=== PATIENT | male | born 1985 | race African-American/Black ===

== ENCOUNTER 2017-10-19 19:20 | Emergency (ER) | payer OTHER ==
--- NOTE | 2017-10-19 20:07 | ED Physician Documentation ---
PD HPI CHEST PAIN - Stated complaint Stated Complaint: CP/NAUSEA - Chief complaint Chief Complaint: Cardiac - History obtained from History obtained from: Patient - History of Present Illness Timing - onset: Today Timing - onset during: Light activity Timing - duration: Hours Timing - details: Abrupt onset, Intermittant Pain level now: 0 Quality: Dull, Pain Location: Substernal, Left chest Radiation: No: Jaw, Neck, Back, Abdominal, Left upper extremity, Right upper extremity Improved by: Rest Worsened by: Inspiration Associated symptoms: No: Shortness of air, Diaphoresis, Nausea, Vomiting, Palpitations Similar symptoms before: Has not had sx before Recently seen: Not recently seen Review of Systems Constitutional: reports: Reviewed and negative Cardiac: reports: Chest pain / pressure. denies: Palpitations, Pedal edema, Calf pain Respiratory: reports: Reviewed and negative GI: reports: Reviewed and negative Musculoskeletal: denies: Extremity swelling PD PAST MEDICAL HISTORY - Past Medical History Past Medical History: No - Past Surgical History Past Surgical History: No - Allergies Allergies/Adverse Reactions: Allergies Allergy/AdvReac Type Severity Reaction Status Date / Time No Known Drug Allergies Allergy Verified 10/19/17 19:32 - Social History Does the pt smoke?: No Smoking Status: Never smoker Does the pt drink ETOH?: Yes Does the pt have substance abuse?: No - Immunizations Immunizations are current?: Yes PD ED PE NORMAL - Vitals Vital signs reviewed: Yes - General General: Alert and oriented X 3, No acute distress, Well developed/nourished - HEENT HEENT: Moist mucous membranes - Neck Neck: Supple, no meningeal sign - Cardiac Cardiac: RRR, No murmur, No gallop, No rub, Other (occasional extrasystole) - Respiratory Respiratory: No respiratory distress, Clear bilaterally - Abdomen Abdomen: Soft, Non tender - Derm Derm: Normal color, Warm and dry - Extremities Extremities: No edema Results - Vitals Vitals: Oxygen O2 Source Room air - EKG (time done) No standard instances Rate: Rate (enter#) (97) Rhythm: NSR [place]: Normal Intervals: Normal CT QRS: Normal Ischemia: Normal ST segments - Labs Labs: Laboratory Tests 10/19/17 10/19/17 10/19/17 19:35 19:35 19:35 WBC 7.9 RBC 5.72 Hgb 16.4 Hct 50.2 MCV 87.8 MCH 28.7 MCHC 32.7 RDW 13.3 Plt Count 284 MPV 8.7 Neut # 5.9 Lymph # 1.0 L [place] # 1.0 Eos # 0.0 Baso # 0.0 Absolute Nucleated RBC 0.00 Nucleated RBC % 0.0 D-Dimer < 200.0 L Sodium 136 Potassium 3.7 Chloride 104 Carbon Dioxide 23 Anion Gap 9.0 BUN 13 Creatinine 0.7 Estimated GFR (MDRD) 160 Glucose 99 Calcium 8.9 Troponin I 10/19/17 19:35 WBC RBC Hgb Hct MCV MCH MCHC RDW Plt Count MPV Neut # Lymph # [place] # Eos # Baso # Absolute Nucleated RBC Nucleated RBC % D-Dimer Sodium Potassium Chloride Carbon Dioxide Anion Gap BUN Creatinine Estimated GFR (MDRD) Glucose Calcium Troponin I < 0.04 - Rads (name of study) chest xray Radiology: Prelim report reviewed, See rad report PD MEDICAL DECISION MAKING - ED course Complexity details: reviewed results, re-evaluated patient, considered differential, d/w patient Departure - Departure Disposition: 01 Home, Self Care Clinical Impression: Chest pain Condition: Good Instructions: ED Chest Pain Atypical Unkn Cause Follow-Up: JANUSZ Woodward [Provider Group] - Within 1 week Discharge Date/Time: 10/19/17 23:43
[2017-10-19 20:36] LABS: BASOPHILS % (AUTO) 0.2 %; EOSINOPHILS % (AUTO) 0.5 %; HGB - HEMOGLOBIN 16.4 g/dL (14.0-18.0); LYMPHOCYTES % (AUTO) 12.5 %; MEAN CORPUSCULAR HEMOGLOBIN 28.7 pg (27.0-31.0); MEAN CORPUSCULAR HGB CONC 32.7 g/dL (32.0-36.0); MEAN CORPUSCULAR VOLUME 87.8 fL (80.0-94.0); MEAN PLATELET VOLUME 8.7 fL (7.4-11.4); MONOCYTES % (AUTO) 12.7 %; NEUTROPHILS # (AUTO) 5.9 10^3/uL (1.5-6.6); NEUTROPHILS % (AUTO) 74.1 %; PLT - PLATELET COUNT 284 10^3/uL (130-450); RED BLOOD COUNT 5.72 10^6/uL (4.70-6.10); RED CELL DISTRIBUTION WIDTH 13.3 % (12.0-15.0); WHITE BLOOD COUNT 7.9 x10^3/uL (4.8-10.8)
[2017-10-19 20:43] LABS: CALCIUM 8.9 mg/dL (8.5-10.3); CREATININE 0.7 mg/dL (0.6-1.2)
--- NOTE | 2017-10-19 20:57 | XRAY Report ---
EXAM: CHEST RADIOGRAPHY EXAM DATE: 10/19/2017 08:47 PM. CLINICAL HISTORY: Chest pain. Pain on inspiration. Nausea. COMPARISON: None. TECHNIQUE: 2 views. FINDINGS: Lungs/Pleura: No focal opacities evident. No pleural effusion. No pneumothorax. Normal volumes. Mediastinum: Heart and mediastinal contours are unremarkable. Other: No acute osseous abnormalities. IMPRESSION: 1. No acute disease in the chest. [facility] Referring Provider Line: [phone] SITE ID: [id number]
[2017-10-19 23:37] VITALS: BP 116/81
== END 2017-10-19 23:43 | disposition home or self-care (01) ==
LOC: ED 19:20
DX: R07.9 Chest pain, unspecified (principal)
CPT/HCPCS: 36415; 71046; 80048; 84484; 85025; 85379; 93005; 99283; 99284

== ENCOUNTER 2019-02-28 16:01 | Inpatient (IN) | payer OTHER ==
[2019-02-28 16:26] LABS: BASOPHILS % (AUTO) 0.3 %; EOSINOPHILS % (AUTO) 0.4 %; HGB - HEMOGLOBIN 15.5 g/dL (14.0-18.0); RED CELL DISTRIBUTION WIDTH 13.2 % (12.0-15.0)
[2019-02-28 16:30] LABS: LYMPHOCYTES % (AUTO) 17.2 %; MEAN CORPUSCULAR HEMOGLOBIN 30.1 pg (27.0-31.0); MEAN CORPUSCULAR HGB CONC 34.1 g/dL (32.0-36.0); MEAN CORPUSCULAR VOLUME 88.2 fL (80.0-94.0); MONOCYTES % (AUTO) 14.3 %; NEUTROPHILS % (AUTO) 67.3 %; PLT - PLATELET COUNT 257 10^3/uL (130-450); RED BLOOD COUNT 5.15 10^6/uL (4.70-6.10); WHITE BLOOD COUNT 11.2 x10^3/uL (4.8-10.8)
[2019-02-28 16:39] LABS: ALBUMIN 4.2 g/dL (3.2-5.5); ALBUMIN/GLOBULIN RATIO 1.2 (1.0-2.2); BILIRUBIN,TOTAL 0.9 mg/dL (0.2-1.0); CALCIUM 9.3 mg/dL (8.5-10.3); CREATININE 0.8 mg/dL (0.6-1.2); TOTAL PROTEIN 7.7 g/dL (6.7-8.2)
[2019-02-28 16:46] LABS: ABNORMAL LYMPHS % (MANUAL) 0 %
[2019-02-28 17:18] LABS: BAND NEUTROPHILS % (MANUAL) 1 %; LYMPHOCYTES # (MANUAL) 2.7 10^3/uL (1.5-3.5); LYMPHOCYTES % (MANUAL) 23 %; MONOCYTES # (MANUAL) 0.9 10^3/uL (0.0-1.0)
[2019-02-28 17:19] LABS: DIFFERENTIAL COMMENT MANUAL DIFFERENTIAL; PLATELET ESTIMATE, MANUAL NORMAL (130-450,000) (NORMAL); PLATELET MORPHOLOGY NORMAL APPEARANCE (NORMAL); RBC MORPHOLOGY (MULTIPLE) NORMAL APPEARANCE (NORMAL)
[2019-02-28 18:00] LABS: BILIRUBIN,URINE NEGATIVE (NEGATIVE); GLUCOSE, URINE (UA) NEGATIVE (NEGATIVE); KETONES,URINE (UA) NEGATIVE (NEGATIVE); LEUKOCYTE ESTERASE, URINE NEGATIVE (NEGATIVE); NITRITE,URINE NEGATIVE (NEGATIVE); OCCULT BLOOD,URINE SMALL (NEGATIVE); PROTEIN,URINE NEGATIVE (NEGATIVE); UROBILINOGEN,URINE 1 (NORMAL) E.U./dL (NORMAL)
[2019-02-28 18:05] LABS: CLARITY,URINE CLEAR (CLEAR)
[2019-02-28 18:09] LABS: BACTERIA,URINE None Seen /HPF (None Seen); MUCUS,URINE Few Strands; SQUAMOUS EPITHELIAL CELL,UR NONE SEEN (<= Few)
[2019-02-28] MEDS ORDERED: IOVERSOL 320 100 ML VIAL IVP ONE ×2 (18:30→18:46)
[2019-02-28] MEDS ORDERED: PIPERACILLIN/TAZOBACTAM 3.375 GM in SODIUM CHLORIDE 0.9% MINIBAG 100 ML IV STA (18:45)
[2019-02-28] MEDS ORDERED: SODIUM CHLORIDE 0.9% 1,000 ML IV ONE (18:50)
[2019-02-28] MEDS ORDERED: MORPHINE 2 MG/ML CARPUJECT IVP STA (18:50)
--- NOTE | 2019-02-28 18:50 | ED Physician Documentation ---
PD HPI ABD PAIN - Stated complaint Stated Complaint: L LOWER ABDOMINAL PX - Chief complaint Chief Complaint: Abd Pain - History obtained from History obtained from: Patient - History of Present Illness Timing - onset: Yesterday Timing - duration: Days (2) Timing - details: Gradual onset Pain level max: 7 Pain level now: 5 Quality: Aching, Pain Location: LLQ Radiation: No: Chest, , Lower back, Left flank, Left shoulder, Right flank, Right shoulder, Upper back Improved by: Laying still Worsened by: Moving, Palpation Associated symptoms: No: Fever, Nausea, Vomiting, Hematemesis, Diarrhea, Constipation, Melena, Hematochezia, Dysuria, Hematuria, Chest pain Similar symptoms before: Has not had sx before Recently seen: Not recently seen Review of Systems Ten Systems: 10 systems reviewed and negative Constitutional: denies: Fever, Chills Cardiac: denies: Chest pain / pressure Respiratory: denies: Cough Skin: denies: Rash Musculoskeletal: denies: Neck pain, Back pain Neurologic: denies: Headache PD PAST MEDICAL HISTORY - Past Medical History Past Medical History: Yes - Past Surgical History Past Surgical History: No - Allergies Allergies/Adverse Reactions: Allergies Allergy/AdvReac Type Severity Reaction Status Date / Time No Known Drug Allergies Allergy Verified 02/28/19 16:05 - Social History Does the pt smoke?: No Smoking Status: Never smoker Does the pt drink ETOH?: Yes Does the pt have substance abuse?: No - Immunizations Immunizations are current?: Yes - POLST Patient has POLST: No PD ED PE NORMAL - Vitals Vital signs reviewed: Yes - General General: Alert and oriented X 3, No acute distress, Well developed/nourished - HEENT HEENT: PERRL, Moist mucous membranes - Neck Neck: Supple, no meningeal sign - Cardiac Cardiac: RRR - Respiratory Respiratory: No respiratory distress, Clear bilaterally - Abdomen Abdomen: Soft, Non distended, Other (TTP LLQ, + guarding and rebound. ) - Back Back: No CVA TTP - Derm Derm: Warm and dry - Extremities Extremities: No edema - Neuro Neuro: Alert and oriented X 3 - Psych Psych: Normal mood, Normal affect Results - Vitals Vitals: Vital Signs - 24 hr 02/28/19 02/28/19 16:05 18:45 Temperature 36.8 C Heart Rate 89 90 Respiratory 15 12 Rate Blood Pressure 164/77 H 121/72 O2 Saturation 97 97 Oxygen O2 Source Room air - Labs Labs: Laboratory Tests 02/28/19 02/28/19 02/28/19 16:20 16:20 17:55 WBC 11.2 H RBC 5.15 Hgb 15.5 Hct 45.4 MCV 88.2 MCH 30.1 MCHC 34.1 RDW 13.2 Plt Count 257 MPV 10.0 Neut # (Auto) Not Reportable Lymph # (Auto) Not Reportable [place] # (Auto) Not Reportable Eos # (Auto) Not Reportable Baso # (Auto) Not Reportable Absolute Nucleated RBC Not Reportable Total Counted 100 Band Neuts % (Manual) 1 Reactive Lymphs % (Man) 1 Abnorm Lymph % (Manual) 0 Nucleated RBC % Not Reportable Neutrophils # (Manual) 7.6 H Lymphocytes # (Manual) 2.7 Monocytes # (Manual) 0.9 Eosinophils # (Manual) 0.0 Basophils # (Manual) 0.0 Differential Comment MANUAL DIFFERENTIAL Manual Slide Review Indicated Platelet Estimate NORMAL (130-450,000) Platelet Morphology NORMAL APPEARANCE RBC Morph Micro Appear NORMAL APPEARANCE Sodium 140 Potassium 4.0 Chloride 105 Carbon Dioxide 25 Anion Gap 10.0 BUN 9 Creatinine 0.8 Estimated GFR (MDRD) 136 Glucose 101 H Calcium 9.3 Total Bilirubin 0.9 AST 34 ALT 45 Alkaline Phosphatase 57 Total Protein 7.7 Albumin 4.2 Globulin 3.5 Albumin/Globulin Ratio 1.2 Lipase 35 Urine Color DARK YELLOW Urine Clarity CLEAR Urine pH 6.0 Ur Specific [place] 1.020 Urine Protein NEGATIVE Urine Glucose (UA) NEGATIVE Urine Ketones NEGATIVE Urine Occult Blood SMALL H Urine Nitrite NEGATIVE Urine Bilirubin NEGATIVE Urine Urobilinogen 1 (NORMAL) Ur Leukocyte Esterase NEGATIVE Urine RBC 11-25 H Urine WBC 0-3 Ur Squamous Epith Cells NONE SEEN Urine Bacteria None Seen Urine Mucus Few Strands Ur Microscopic Review INDICATED Urine Culture Comments NOT INDICATED - Rads (name of study) CT abd/pelvis Radiology: Prelim report reviewed, EMP read contemporaneously, See rad report (Contained microperforation of the proximal sigmoid colon likely secondary to acute diverticulitis. No evidence of ascites or abscess. Small hiatal hernia. Nonobstructive bowel gas pattern. Normal appendix. Small fat-containing periumbilical hernia and bilateral fat-containing inguinal hernias. 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 Given Zosyn. Not septic. No abscess. Discussed the case with Dr. Napier, general surgery on-call who recommends admission to the hospitalist team. Discussed the case with Dr. Palma, hospitalist who accepts. This document was made in part using voice recognition software. While efforts are made to proofread this document, sound alike and grammatical errors may occur. Departure - Departure Disposition: 68 [facility] DC/Xfer Clinical Impression: Perforated diverticulum, Diverticulitis Condition: Stable Discharge Date/Time: 02/28/19 20:04
--- NOTE | 2019-02-28 19:06 | CT Report ---
Reason: LLQ abd pain Procedure Date: 02/28/2019 Accession Number: [id number] / [id number] Procedure: CT - Abdomen/Pelvis W CPT Code: FULL RESULT: EXAM: CT ABDOMEN AND PELVIS EXAM DATE: 02/28/2019 06:46 PM. CLINICAL HISTORY: Left lower quadrant abdominal pain. COMPARISONS: None available. TECHNIQUE: Routine helical CT imaging was performed through the abdomen and pelvis. IV contrast: OPTI 320 90 mL. Enteric contrast: No. Reconstructions: Coronal and sagittal. In accordance with CT protocol optimization, one or more of the following dose reduction techniques were utilized for this exam: automated exposure control, adjustment of mA and/or KV based on patient size, or use of iterative reconstructive technique. FINDINGS: Lung Bases: Minimal dependent atelectasis bilaterally. Liver: Normal. No masses. Gallbladder/Bile Ducts: Unremarkable. Spleen: Small splenule at the inferior margin of the spleen. Otherwise unremarkable. Pancreas: Normal. Adrenal Glands: Normal. Kidneys: Symmetric renal perfusion. No hydronephrosis or nephrolithiasis. Peritoneal Cavity/Bowel: Small hiatal hernia. Nonobstructive bowel gas pattern. Small fat-containing periumbilical hernia with the hernia neck measuring 18 mm in transverse diameter. There is very minimal diverticulosis of the sigmoid colon. However, there is focal wall thickening and pericolonic inflammatory change involving the proximal sigmoid colon. There is a small pocket of extraluminal gas anteriorly at this location (image 63 of series 3). Elsewhere, no free intraperitoneal air. No ascites or abscess. The appendix is normal. Pelvic Organs: Small fat-containing inguinal hernias bilaterally, left larger than right. Vasculature: No aneurysms or acute abnormality. Bones: No acute abnormality. Other: None. IMPRESSION: Contained microperforation of the proximal sigmoid colon likely secondary to acute diverticulitis. No evidence of ascites or abscess. Small hiatal hernia. Nonobstructive bowel gas pattern. Normal appendix. Small fat-containing periumbilical hernia and bilateral fat-containing inguinal hernias. [facility] The call report notification system was initiated by Dr. Taj Chow at 07:00 PM on 02/28/2019. The above call report findings were discussed with Kendall Torres by Dr. Taj Chow at 07:04 PM on 02/28/2019.
[2019-02-28] MEDS ORDERED: SODIUM CHLORIDE FLUSH 0.9% 10 ML SYRINGE IVP PRN (19:36)
[2019-02-28] MEDS ORDERED: MORPHINE 2 MG/ML CARPUJECT IVP PRN (19:36)
[2019-02-28] MEDS ORDERED: LACTATED RINGERS 1,000 ML IV SCH (20:00)
[2019-02-28] MEDS: SODIUM CHLORIDE 0.9% 1,000 ML IV SCH (20:44)
--- NOTE | 2019-02-28 20:50 | HISTORY & PHYSICAL EXAMINATION ---
Chief Complaint - Chief Complaint Chief Complaint: Lower abdominal pain History of Present Illness - Admitted From Admitted From:: Home - History Obtained From Records Reviewed: Yes History obtained from: Patient - History of Present Illness HPI Comment/Other: This is a 34 year old male with a past medical history significant for diverticulitis who presents from home complaining of lower abdominal pain for past two days. He first noted the pain yesterday and he thought it was something he ate that upset his stomach. The pain became more severe today (03/06) and he has not had an appetite and so he seeked medical attention. He reports no fevers or chills. Denies nausea, vomiting, diarrhea, or rectal bleeding. He currently reports his pain is well controlled after receiving Morphine. He has not had abdominal issues in the past. His mother has had diverticulitis before. In the ER, he underwent a CT of the abdomen/pelvis which showed diverticulitis with contained microperforation. He will be admitted for further management. 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 Reports no family history of colon cancer. His father had prostate cancer. There is history of ovarian cancer on his mother's side. There is also a history of diabetes on his father's side. Living arrangement: At home Living Situation: Alone Social History Notes: He now lives on [address] [facility] after moving from [place] 1.5 years ago. 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 Does not smoke or use illicit drugs. Drinks alcohol socially. - Substance History Use: Uses substance without health or social issues: Alcohol - POLST Patient has POLST: No Meds/Allgy - Allergies Allergies/Adverse Reactions: Allergies Allergy/AdvReac Type Severity Reaction Status Date / Time No Known Drug Allergies Allergy Verified 02/28/19 16:05 Review of Systems - Constitutional Constitutional: reports: Poor appetite. denies: Fatigue, Fever, Chills, Weakness - Cardiovascular Cariovascular: denies: Chest pain, Lightheadedness - Respiratory Respiratory: denies: SOB at rest, SOB with exertion - Gastrointestinal Gastrointestinal: reports: Abdominal pain. denies: Constipation, Diarrhea, Change in bowel habits, Rectal bleeding, Bloody stools, Nausea, Vomiting - Genitourinary Genitourinary: denies: Dysuria, Frequency, Urgency, Hematuria - Neurological Neurological: denies: General weakness, Dizziness - All Other Systems All Other Systems: reports: Reviewed and negative Prior Level of Functionality: Independent with ADL's. Exam - Vital Signs Vital Signs: Vital Signs x48h Temp Pulse Pulse Resp BP BP Pulse Ox 02/28/19 20:24 37.7 C H 100 18 136/86 H 99 02/28/19 18:45 90 12 121/72 97 02/28/19 16:05 36.8 C 89 15 164/77 H 97 - Physical Exam General Appearance: positive: No acute distress, Alert Eyes Bilateral: positive: Normal inspection ENT: positive: ENT inspection nml Respiratory: positive: No respiratory distress, Breath sounds nml. negative: Wheezes, Rales, Rhonchi Cardiovascular: positive: Regular rate & rhythm, No murmur. negative: Ir regularly irregular, Tachycardia, Bradycardia Abdomen: positive: Nml bowel sounds, Tenderness (Tender to palpation in left lower qudrant.). negative: No organomegaly, No distention, Guarding, Rebound Skin: positive: Color nml, No rash, Warm, Dry Extremities: positive: Non-tender, Full ROM, No pedal edema. negative: Pedal edema Neurologic/Psychiatric: positive: Oriented x3, Motor nml. negative: Disoriented to person, Disoriented to place, Disoriented to time Conclusion/Plan - Problem List (1) Diverticulitis Conclusion/Plan: He has diverticulitis with contained microperforation. Evident on CT abdomen/pelvis. Does not meet sepsis criteria. - Zosyn IV q6h - Zofran PRN - Morphine PRN - NPO, advance diet as tolerated - Colonoscopy in 6-8 weeks on outpatient basis - General Surgery consult (2) HIV (human immunodeficiency virus infection) Conclusion/Plan: Stable. He is on Biktarvy. Denies having low CD4 count. - Resume Biktarvy once the patient brings home medication - Lab Results Lab results reviewed: Yes Fish Bones: 02/28/19 16:20 02/28/19 16:20 - Diagnostic Imaging Results Diagnostic Imaging Results: positive: Final report reviewed Core Measures - Anticipated LOS I expect patient to be DC'd or transferred within 96 hours.: Yes - Issues Hospital Issues and Management Plan: Diverticulitis requiring IV antibiotics - DVT/VTE - Prophylaxis VTE/DVT Device ordered at admit?: Yes VTE/DVT Prophylaxis med ordered at admit?: Yes
[2019-02-28] MEDS ORDERED: ONDANSETRON 4 MG/2 ML VIAL IVP PRN (21:08)
[2019-03-01] MEDS: PIPERACILLIN/TAZOBACTAM 3.375 GM in SODIUM CHLORIDE 0.9% MINIBAG 100 ML IV SCH ×5 (00:42→23:52)
[2019-03-01] MEDS: ACETAMINOPHEN 325 MG TABLET PO PRN ×2 (00:42→11:40)
[2019-03-01] MEDS: SODIUM CHLORIDE FLUSH 0.9% 10 ML SYRINGE IVP SCH ×4 (00:43→23:54)
[2019-03-01] MEDS: SODIUM CHLORIDE 0.9% 1,000 ML IV SCH ×3 (03:26→21:59)
[2019-03-01 06:21] LABS: BASOPHILS % (AUTO) 0.3 %; EOSINOPHILS # (AUTO) 0.1 10^3/uL (0.0-0.7); EOSINOPHILS % (AUTO) 0.5 %; HGB - HEMOGLOBIN 14.2 g/dL (14.0-18.0); LYMPHOCYTES # (AUTO) 2.2 10^3/uL (1.5-3.5); LYMPHOCYTES % (AUTO) 19.9 %; MEAN CORPUSCULAR HEMOGLOBIN 29.3 pg (27.0-31.0); MEAN CORPUSCULAR VOLUME 88.8 fL (80.0-94.0); MEAN PLATELET VOLUME 10.1 fL (7.4-11.4); MONOCYTES # (AUTO) 1.5 10^3/uL (0.0-1.0); MONOCYTES % (AUTO) 13.2 %; NEUTROPHILS # (AUTO) 7.3 10^3/uL (1.5-6.6); NEUTROPHILS % (AUTO) 65.9 %; PLT - PLATELET COUNT 249 10^3/uL (130-450); RED BLOOD COUNT 4.84 10^6/uL (4.70-6.10); RED CELL DISTRIBUTION WIDTH 13.4 % (12.0-15.0); WHITE BLOOD COUNT 11.1 x10^3/uL (4.8-10.8)
[2019-03-01 06:34] LABS: CALCIUM 8.8 mg/dL (8.5-10.3); MAGNESIUM 2.1 mg/dL (1.7-2.8); PHOSPHORUS 3.7 mg/dL (2.5-4.6)
[2019-03-01] MEDS: BICTEGRAVIR PO SCH (08:28)
[2019-03-01] MEDS: [UNRECOGNIZED DRUG - OTHER] PO SCH (08:28)
[2019-03-01] MEDS: EMTRICITABINE PO SCH (08:28)
[2019-03-01] MEDS: TENOFOVIR ALAFENAMIDE 25 MG PO SCH (08:28)
[2019-03-01] MEDS: ENOXAPARIN 40 MG/0.4 ML SYRINGE SUBQ SCH (08:28)
--- NOTE | 2019-03-01 16:58 | PROVIDER PROGRESS NOTE ---
Subjective - Prog Note Date Prog Note Date: 03/01/19 Prog Note Time: 16:54 - Subjective Pt reports feeling: Improved Subjective: Angelo admits to an improvement in his abdominal pain and is tolerating a clear liquid diet this evening. He denies chest pain, nausea, vomiting, a new rash, dizziness, or shortness of breath. He denies blood stools or vomiting today. Current Medications - Current Medications Current Medications: Active Medications: Acetaminophen (Tylenol) 650 mg PO Q6HR PRN Enoxaparin Sodium (Lovenox) 40 mg SUBQ DAILY BURKE Piperacillin Sod/Tazobactam (Sod 3.375 gm/ Sodium Chloride) 100 mls @ 200 mls/hr IV Q6H BURKE Sodium Chloride (Normal Saline 0.9%) 1,000 mls @ 125 mls/hr IV .Q8H BURKE Morphine Sulfate (Morphine (Carpuject)) 2 mg IVP Q2HR PRN Ondansetron HCl (Zofran Inj) 4 mg IVP Q6HR PRN Biktarvy - Bictegravir 50mg/Emtricitabine 200mg/Tenofovir Alafenamide 25mg 1 each PO DAILY BURKE Objective - Vital Signs/Intake & Output Reviewed Vital Signs: Yes Vital Signs: Vital Signs x48h Temp Pulse Resp BP Pulse Ox 03/01/19 16:00 36.6 C 83 16 129/76 97 Intake & Output: Intake & Output 02/26/19 02/27/19 02/28/19 03/01/19 23:59 23:59 23:59 23:59 Intake Total 357.5 2211.667 Balance 357.5 2211.667 - Objective General Appearance: positive: No acute distress, Alert Eyes Bilateral: positive: PERRL ENT: positive: Pharynx nml, No signs of dehydration Neck: positive: Thyroid nml, No JVD, Trachea midline Respiratory: positive: Chest non-tender, No respiratory distress, Breath sounds nml Cardiovascular: positive: Regular rate & rhythm, No gallop Peripheral Pulses: 1+ Radial (R), 1+ Radial (L) Abdomen: positive: Non-tender, Nml bowel sounds Back: positive: Nml inspection Skin: positive: Color nml, No rash, Warm, Dry Extremities: positive: Non-tender, Full ROM, Nml appearance, No pedal edema Neurologic/Psychiatric: positive: Oriented x3, CN's nml (2-12), Motor nml, Sens ation nml, Mood/affect nml Reflexes: Bicep (R): 3+, Bicep (L): 3+ - Lab Results Fish Bones: 03/02/19 05:29 03/02/19 05:39 Other Labs: Lab Results x24hrs 03/01/19 03/01/19 02/28/19 Range/Units 05:45 05:45 17:55 WBC 11.1 H (4.8-10.8) x10^3/uL RBC 4.84 (4.70-6.10) 10^6/uL Hgb 14.2 (14.0-18.0) g/dL Hct 43.0 (42.0-52.0) % MCV 88.8 (80.0-94.0) fL MCH 29.3 (27.0-31.0) pg MCHC 33.0 (32.0-36.0) g/dL RDW 13.4 (12.0-15.0) % Plt Count 249 (130-450) 10^3/uL MPV 10.1 (7.4-11.4) fL Neut # (Auto) 7.3 H Lymph # (Auto) 2.2 [place] # (Auto) 1.5 H Eos # (Auto) 0.1 Baso # (Auto) 0.0 Absolute Nucleated RBC 0.00 Total Counted Band Neuts % (Manual) (0 - 10) % Reactive Lymphs % (Man) % Abnorm Lymph % (Manual) % Nucleated RBC % 0.0 Neutrophils # (Manual) (1.5-6.6) 10^3/uL Lymphocytes # (Manual) (1.5-3.5) 10^3/uL Monocytes # (Manual) (0.0-1.0) 10^3/uL Eosinophils # (Manual) (0-0.7) 10^3/uL Basophils # (Manual) (0-0.1) 10^3/uL Differential Comment Platelet Estimate (NORMAL) Platelet Morphology (NORMAL) RBC Morph Micro Appear (NORMAL) Sodium 141 (135-145) mmol/L Potassium 4.0 (3.5-5.0) mmol/L Chloride 105 (101-111) mmol/L Carbon Dioxide 26 (21-32) mmol/L Anion Gap 10.0 (6-13) BUN 8 (6-20) mg/dL Creatinine 1.0 (0.6-1.2) mg/dL Estimated GFR (MDRD) 105 (>89) Glucose 93 (70-100) mg/dL Calcium 8.8 (8.5-10.3) mg/dL Phosphorus 3.7 (2.5-4.6) mg/dL Magnesium 2.1 (1.7-2.8) mg/dL Urine Color DARK YELLOW Urine Clarity CLEAR (CLEAR) Urine pH 6.0 (5.0-7.5) PH Ur Specific [place] 1.020 (1.002-1.030) Urine Protein NEGATIVE (NEGATIVE) mg/dL Urine Glucose (UA) NEGATIVE (NEGATIVE) mg/dL Urine Ketones NEGATIVE (NEGATIVE) mg/dL Urine Occult Blood SMALL H (NEGATIVE) Urine Nitrite NEGATIVE (NEGATIVE) Urine Bilirubin NEGATIVE (NEGATIVE) Urine Urobilinogen 1 (NORMAL) (NORMAL) E.U./dL Ur Leukocyte Esterase NEGATIVE (NEGATIVE) Urine RBC 11-25 H (0-5) /HPF Urine WBC 0-3 (0-3) /HPF Ur Squamous Epith Cells NONE SEEN (<= Few) Urine Bacteria None Seen (None Seen) /HPF Urine Mucus Few Strands Ur Microscopic Review INDICATED Urine Culture Comments NOT INDICATED 02/28/19 Range/Units 16:20 WBC (4.8-10.8) x10^3/uL RBC (4.70-6.10) 10^6/uL Hgb (14.0-18.0) g/dL Hct (42.0-52.0) % MCV (80.0-94.0) fL MCH (27.0-31.0) pg MCHC (32.0-36.0) g/dL RDW (12.0-15.0) % Plt Count (130-450) 10^3/uL MPV (7.4-11.4) fL Neut # (Auto) Not Reportable Lymph # (Auto) Not Reportable [place] # (Auto) Not Reportable Eos # (Auto) Not Reportable Baso # (Auto) Not Reportable Absolute Nucleated RBC Not Reportable Total Counted 100 Band Neuts % (Manual) 1 (0 - 10) % Reactive Lymphs % (Man) 1 % Abnorm Lymph % (Manual) 0 % Nucleated RBC % Not Reportable Neutrophils # (Manual) 7.6 H (1.5-6.6) 10^3/uL Lymphocytes # (Manual) 2.7 (1.5-3.5) 10^3/uL Monocytes # (Manual) 0.9 (0.0-1.0) 10^3/uL Eosinophils # (Manual) 0.0 (0-0.7) 10^3/uL Basophils # (Manual) 0.0 (0-0.1) 10^3/uL Differential Comment MANUAL DIFFERENTIAL Platelet Estimate NORMAL (130-450,000) (NORMAL) Platelet Morphology NORMAL APPEARANCE (NORMAL) RBC Morph Micro Appear NORMAL APPEARANCE (NORMAL) Sodium (135-145) mmol/L Potassium (3.5-5.0) mmol/L Chloride (101-111) mmol/L Carbon Dioxide (21-32) mmol/L Anion Gap (6-13) BUN (6-20) mg/dL Creatinine (0.6-1.2) mg/dL Estimated GFR (MDRD) (>89) Glucose (70-100) mg/dL Calcium (8.5-10.3) mg/dL Phosphorus (2.5-4.6) mg/dL Magnesium (1.7-2.8) mg/dL Urine Color Urine Clarity (CLEAR) Urine pH (5.0-7.5) PH Ur Specific [place] (1.002-1.030) Urine Protein (NEGATIVE) mg/dL Urine Glucose (UA) (NEGATIVE) mg/dL Urine Ketones (NEGATIVE) mg/dL Urine Occult Blood (NEGATIVE) Urine Nitrite (NEGATIVE) Urine Bilirubin (NEGATIVE) Urine Urobilinogen (NORMAL) E.U./dL Ur Leukocyte Esterase (NEGATIVE) Urine RBC (0-5) /HPF Urine WBC (0-3) /HPF Ur Squamous Epith Cells (<= Few) Urine Bacteria (None Seen) /HPF Urine Mucus Ur Microscopic Review Urine Culture Comments ABX Reporting Has patient been on IV antibiotics over the past 48 hours?: Yes Assessment/Plan - Problem List (1) Diverticulitis Impression: -Imaging showed diverticulitis with contained microperforation, via CT abdomen /pelvis - Zosyn IV q6h - Zofran PRN - Morphine PRN - Clear liquid, advance diet as tolerated - Colonoscopy in 6-8 weeks on outpatient basis - General Surgery consulted, see chart for note (2) HIV (human immunodeficiency virus infection) Impression: - This condition is thought to be stable - Home meds include; Biktarvy - Unknown CD4 count, but patient states his last one was not low Plan: Continue Biktarvy (patient own medication) (3) Perforated diverticulum Impression: - Imaging showed micro-perforations in the sigmoid colon (4) Abdominal pain Impression: - Now resolved - On admission, he noted LLQ pain, which goes with his condition Plan: Continue to monitor for improvement Qualifiers: Abdominal location: left lower quadrant Qualified Code(s): R10.32 - Left lower quadrant pain
--- NOTE | 2019-03-01 23:55 | CONSULTATION NOTE ---
Referring Provider Name of Referring Provider:: Dr. Seamus Torres Consult Date: 02/28/19 Chief Complaint - Chief Complaint Chief Complaint: LLQ abdominal pain History of Present Illness - Admitted From Admitted From:: [facility] ED Room 6 - History Obtained From Records Reviewed: Yes. History obtained from: Patient and Dr. Torres. Exam Limitations: None. - History of Present Illness HPI Comment/Other: Dr. Seamus Gilbert asked that I see this very pleasant 34-year-old male for perforated diverticulitis. The patient did not appear septic on presentation but did have a couple day up this history of worsening left lower quadrant pain. There was no antecedent trauma. The patient has not had this pain previously. The patient denied melena, hematochezia, or hematemesis. History - Past Medical History Cardiovascular: reports: None Respiratory: reports: None Neuro: reports: None Endocrine/Autoimmune: reports: None GI: reports: None [employer]: reports: None : reports: None HEENT: reports: None Psych: reports: None Musculoskeletal: reports: None Derm: reports: None MRSA Hx?: No Other Past Medical History: HIV - Family & Social History Family History Comment/Other: His mother had diverticulitis in the past. Reports no family history of colon cancer. His father had prostate cancer. There is history of ovarian cancer on his mother's side. There is also a history of diabetes on his father's side. Living arrangement: At home Living Situation: Alone Social History Notes: He now lives on [address] [facility] after moving from [place] 1.5 years ago. 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 Does not smoke or use illicit drugs. Drinks alcohol socially. - Substance History Use: Uses substance without health or social issues: Alcohol - POLST Patient has POLST: No Meds/Allgy - Allergies Allergies/Adverse Reactions: Allergies Allergy/AdvReac Type Severity Reaction Status Date / Time No Known Drug Allergies Allergy Verified 02/28/19 16:05 Review of Systems - Gastrointestinal Gastrointestinal: reports: Abdominal pain, Diarrhea (Some.) Exam - Vital Signs Reviewed Vital Signs: Yes Vital Signs: Vital Signs x48h Temp Pulse Resp BP Pulse Ox 03/01/19 23:50 36.8 C 85 17 137/72 H 98 03/01/19 16:00 36.6 C 83 16 129/76 97 - Physical Exam General Appearance: positive: No acute distress Eyes Bilateral: positive: No lid inflammation, Conjunctivae nml, No scleral icterus ENT: positive: Dry mucous membranes Neck: positive: Trachea midline Respiratory: positive: Chest non-tender, No respiratory distress, Breath sounds nml Cardiovascular: positive: Regular rate & rhythm Abdomen: positive: Nml bowel sounds, Tenderness (Sharp in the left lower quadrant and referred pain from palpation in the right lower quadrant.) Skin: positive: Color nml Extremities: positive: Non-tender, Full ROM, Nml appearance Neurologic/Psychiatric: positive: Oriented x3, Motor nml, Sensation nml, Mood/affect nml Conclusion/Plan - Diagnosis Diagnosis: Small perforated diverticulitis (contained) - Plan Plan: As I explained to the patient both in the emergency room and on the floor when I saw him I am "plan B." Basically, I am here to ensure that if he does have a f ree perforation or appears septic then I would perform surgery to resect the perforated colon and give him an end colostomy. This is obviously not with the patient wants, nor is it what I wish to perform. Instead, assuming the patient improves, the patient would be discharged home and he will follow-up with me in 6 weeks time for a colonoscopy. 45 minutes of [id number] time spent with the patient, the majority of which was spent in discussion, coordination of care, and completion of the requisite paperwork Dragon disclaimer: This document was created in part using voice recognition technology. Because of the inherent limitations of the system ([employer]'s Dragon Dictate user manual states that the licensee understands that speech recognition is a statistical process and that recognition errors are inherent in the process), occasional same sounding word substitutions and grammatical errors do occur and persist despite proofreading. Please read this document for context. - Lab Results Lab results reviewed: Yes Fish Bones: 03/01/19 05:45 03/01/19 05:45 - Diagnostic Imaging Results Diagnostic Imaging Results: positive: Final report reviewed, Read independently
[2019-03-02] MEDS: PIPERACILLIN/TAZOBACTAM 3.375 GM in SODIUM CHLORIDE 0.9% MINIBAG 100 ML IV SCH ×2 (05:21→12:10)
[2019-03-02 06:02] LABS: BASOPHILS % (AUTO) 0.3 %; EOSINOPHILS # (AUTO) 0.1 10^3/uL (0.0-0.7); EOSINOPHILS % (AUTO) 1.3 %; HGB - HEMOGLOBIN 14.4 g/dL (14.0-18.0); LYMPHOCYTES # (AUTO) 1.8 10^3/uL (1.5-3.5); MEAN CORPUSCULAR HEMOGLOBIN 29.4 pg (27.0-31.0); MEAN CORPUSCULAR HGB CONC 33.3 g/dL (32.0-36.0); MEAN CORPUSCULAR VOLUME 88.3 fL (80.0-94.0); MEAN PLATELET VOLUME 10.2 fL (7.4-11.4); MONOCYTES # (AUTO) 0.8 10^3/uL (0.0-1.0); MONOCYTES % (AUTO) 11.1 %; NEUTROPHILS # (AUTO) 4.4 10^3/uL (1.5-6.6); NEUTROPHILS % (AUTO) 62.2 %; PLT - PLATELET COUNT 254 10^3/uL (130-450); RED BLOOD COUNT 4.89 10^6/uL (4.70-6.10); RED CELL DISTRIBUTION WIDTH 13.2 % (12.0-15.0); WHITE BLOOD COUNT 7.1 x10^3/uL (4.8-10.8)
[2019-03-02 06:17] LABS: CALCIUM 8.7 mg/dL (8.5-10.3); MAGNESIUM 2.2 mg/dL (1.7-2.8); PHOSPHORUS 3.4 mg/dL (2.5-4.6)
[2019-03-02] MEDS ORDERED: POTASSIUM CHLORIDE 20 MEQ TABLET PO ONE (06:41)
[2019-03-02] MEDS: SODIUM CHLORIDE FLUSH 0.9% 10 ML SYRINGE IVP SCH (08:17)
[2019-03-02 08:20] VITALS: BP 128/70
[2019-03-02] MEDS: SODIUM CHLORIDE 0.9% 1,000 ML IV SCH (09:01)
[2019-03-02] MEDS: BICTEGRAVIR PO SCH (09:01)
[2019-03-02] MEDS: [UNRECOGNIZED DRUG - OTHER] PO SCH (09:01)
[2019-03-02] MEDS: EMTRICITABINE PO SCH (09:01)
[2019-03-02] MEDS: TENOFOVIR ALAFENAMIDE 25 MG PO SCH (09:01)
[2019-03-02] MEDS: ENOXAPARIN 40 MG/0.4 ML SYRINGE SUBQ SCH (09:01)
--- NOTE | 2019-03-02 13:02 | Discharge Plan ---
Discharge Plan Problem Reviewed?: Yes Disposition: Home, Self Care Condition: Good Prescriptions: Ciprofloxacin HCl [Cipro] 500 mg PO Q12H #24 tablet Metronidazole [Flagyl] 500 mg PO Q8H #36 tablet Saccharomyces Boulardii [Florastor] 250 mg PO BID #60 capsule Wheat Dextrin [Benefiber] 1 each PO DAILY #30 powd.pack Diet: Regular (see hand-outs on food choices) Activity Restrictions: Activity as Tolerated Shower Restrictions: No Driving Restrictions: No Health Concerns: Diverticulitis (with micro-perforations) in the sigmoid colon Abdominal pain HIV Plan of Treatment: Continue oral antibiotics at home for the next 12 days Take daily benefiber to promote good bowel health and prevent more episodes of diverticulitis Take a probiotic for at least one month to restore health gut bacteria Continue your HIV treatments Care Goals: Prevent recurrence of diverticulitis Prevent ED visit and/or hospital stays Follow up with general surgery with a colonoscopy in the next 6 weeks outpatient Stay off work until your primary care provider recommends that you are ok to work Assessment: Angelo is agreeable to discharge and had no further severe abdominal pain which was present on admission. No Smoking: If you smoke, Please STOP! Call for help. Follow-up with: DELMY SAPP MD [Primary Care Provider] -
--- NOTE | 2019-03-02 13:24 | DISCHARGE SUMMARY ---
Discharge Summary Admit Date: 02/28/19 Discharge Date: 03/02/19 Discharging Provider: HAVEN Barber Primary Care Provider: Yonatan Funk Code Status: Attempt Resuscitation Condition at Discharge: Good Discharge Disposition: 01 Home, Self Care - DIAGNOSES Admission Diagnoses: Diverticulitis HIV (human immunodeficiency virus infection) Discharge Diagnoses with Status of Each Condition: Diverticulitis- improved, continue extended course of antibiotics at home HIV (human immunodeficiency virus infection)- chronic, stable Perforated diverticulum- improved, continue on PO cipro and flagyl for the next 12 days at home, also take a probiotic Abdominal pain- resolved - HPI History of Present Illness: HPI per Dr. Palma: (Modified) Angelo Rabago is a 34 year old male with a past medical history significant for diverticulitis & HIV, who presents from home complaining of lower abdominal pain for past two days. He first noted the pain yesterday and he thought it was something he ate that upset his stomach. The pain became more severe today (03/06) and he has not had an appetite and so he seeked medical attention. He reports no fevers or chills. Denies nausea, vomiting, diarrhea, or rectal bleeding. He currently reports his pain is well controlled after receiving Morphine. He has not had abdominal issues in the past. His mother has had diverticulitis before. In the ER, he underwent a CT of the abdomen/pelvis which showed diverticulitis with contained microperforation. He will be admitted for further management. - CONSULTS | PROCEDURES Consultations: General surgery- Dr. Barone Procedures: No procedures. Dr. Barone notes: "As I explained to the patient both in the emergency room and on the floor when I saw him I am "plan B." Basically, I am here to ensure that if he does have a free perforation or appears septic then I would perform surgery to resect the perforated colon and give him an end colostomy. This is obviously not with the patient wants, nor is it what I wish to perform. Instead, assuming the patient improves, the patient would be discharged home and he will follow-up with me in 6 weeks time for a colonoscopy". - HOSPITAL COURSE Hospital Course: (1) Diverticulitis-Imaging showed diverticulitis with contained microperf oration, via CT abdomen/pelvis - Zosyn IV q6h - Advance diet as tolerated, was tolerating a regular diet prior to discharge today - Colonoscopy in 6-8 weeks on outpatient basis - General Surgery consulted, see chart for note (2) HIV (human immunodeficiency virus infection)- This condition is thought to be stable - Home meds include; Biktarvy - Unknown CD4 count, but patient states his last one was not low - Continued Biktarvy (patient own medication) (3) Perforated diverticulum- Imaging showed micro-perforations in the sigmoid colon (4) Abdominal pain- Now resolved - On admission, he noted LLQ pain, which goes with his condition Disposition: The patient was nearly pain free and discharged in medically stable condition. He was tolerating a regular diet and was not having bloody stools or dizziness. He tolerated his first dose of oral antibiotic and was sent home via private car with his prescriptions waiting at the [facility] pharmacy as requested. - ALLERGIES Allergies/Adverse Reactions: Allergies Allergy/AdvReac Type Severity Reaction Status Date / Time No Known Drug Allergies Allergy Verified 02/28/19 16:05 - MEDICATIONS Home Medications: Ambulatory Orders Medication Instructions Recorded Confirmed Ciprofloxacin HCl [Cipro] 500 mg PO Q12H #24 tablet 03/02/19 Metronidazole [Flagyl] 500 mg PO Q8H #36 tablet 03/02/19 Saccharomyces Boulardii [Florastor] 250 mg PO BID #60 capsule 03/02/19 Wheat Dextrin [Benefiber] 1 each PO DAILY #30 powd.pack 03/02/19 - PHYSICAL EXAM AT DISCHARGE General Appearance: positive: No acute distress, Alert Eyes Bilateral: positive: PERRL ENT: positive: ENT inspection nml, Pharynx nml, No signs of dehydration Neck: positive: Thyroid nml, No JVD, Trachea midline Respiratory: positive: Chest non-tender, No respiratory distress, Breath sounds nml Cardiovascular: positive: Regular rate & rhythm, No murmur, No gallop Peripheral Pulses: positive: 2+ Abdomen: positive: No organomegaly, Nml bowel sounds, Tenderness (only with deep palpation in LLQ) Back: positive: Nml inspection Skin: positive: Color nml, No rash, Warm, Dry Extremities: positive: Non-tender, Full ROM, Nml appearance, No pedal edema Neurologic/Psychiatric: positive: Oriented x3, CN's nml (2-12), Motor nml, Sensation nml, Mood/affect nml Reflexes: Bicep (R): 3+, Bicep (L): 3+ - LABS Result Diagrams: 03/02/19 05:29 03/02/19 05:39 - DIAGNOSTIC IMAGING Diagnostic Imaging Results: Final report reviewed Diagnostic Imaging Results Comments: EXAM: CT ABDOMEN AND PELVIS EXAM DATE: 02/28/2019 06:46 PM IMPRESSION: Contained microperforation of the proximal sigmoid colon likely secondary to acute diverticulitis. No evidence of ascites or abscess. Small hiatal hernia. Nonobstructive bowel gas pattern. Normal appendix. Small fat- containing periumbilical hernia and bilateral fat-containing inguinal hernias. - FOLLOW UP Follow Up: Disposition: Home Prescriptions: Ciprofloxacin HCl [Cipro] 500 mg PO Q12H #24 tablet Metronidazole [Flagyl] 500 mg PO Q8H #36 tablet Saccharomyces Boulardii [Florastor] 250 mg PO BID #60 capsule Wheat Dextrin [Benefiber] 1 each PO DAILY #30 powd.pack Diet: Regular (see hand-outs on food choices) Activity Restrictions: Activity as Tolerated Health Concerns: Diverticulitis (with micro-perforations) in the sigmoid colon, Abdominal pain, HIV Plan of Treatment: Continue oral antibiotics at home for the next 12 days Take daily benefiber to promote good bowel health and prevent more episodes of diverticulitis Take a probiotic for at least one month to restore health gut bacteria Continue your HIV treatments Care Goals: Prevent recurrence of diverticulitis Prevent ED visit and/or hospital stays Follow up with general surgery with a colonoscopy in the next 6 weeks outpatient Stay off work until your primary care provider recommends that you are ok to work Assessment: Angelo is agreeable to discharge and had no further severe abdominal pain which was present on admission. * Follow up with PCP within one week of this discharge. - TIME SPENT Time Spent in Discharge (Minutes): 45
== END 2019-03-02 14:15 | disposition home or self-care (01) | DRG 392 ==
LOC: ED 16:01 → MS2 19:36
PROVIDERS: ADMIT Internal Medicine; ATTEND Nurse Practitioner
DX: K57.20 Diverticulitis of large intestine with perforation and abscess without bleeding (principal); Z21 Asymptomatic human immunodeficiency virus [HIV] infection status; Z83.79 Family history of other diseases of the digestive system; Z79.899 Other long term (current) drug therapy
CPT/HCPCS: 36415; 74177; 80048; 80053; 81001; 83690; 83735; 84100; 85025; 96365; 96375; 99284; 99285; A9270; J1650; Q9967; 81003; 87086

== ENCOUNTER 2019-10-31 18:45 | Emergency (ER) | payer OTHER ==
[2019-10-31] MEDS ORDERED: IBUPROFEN 600 MG TABLET PO STA (19:21)
--- NOTE | 2019-10-31 19:32 | ED Physician Documentation ---
PD HPI CHEST PAIN - Stated complaint Stated Complaint: CHEST PAIN - Chief complaint Chief Complaint: Cardiac - History obtained from History obtained from: Patient - Additional information Additional information: Patient comes emergency department complaining of chest pain that started this morning. Patient states that it feels like a 4/10 burning sensation that comes on suddenly just to the left of his midsternal area and lasts for several seconds at a time, then goes away. Patient states that the pain can go away for variable amount of time, anywhere from seconds to hours and then starts up again. Patient states that he has not had any fevers or chills. No cough. He statesHe did eat some spicy food in the last couple of days, but has never had an issue with GERD before and is not sure if this is heartburn or not. He states he has a mildly sore throat. Patient has no history of cardiac risk factors including smoking, diabetes, hypertension, and hyperlipidemia. No family history of coronary artery disease in the 30s or 40s. Patient denies shortness of breath. He states that he feels slightly anxious when the pain comes on, but does not have any isolated shortness of breath.Patient denies any recent decrease in exercise tolerance. He states he has been home for 2 weeks because his commanding officer told him he should isolate himself to avoid getting coronavirus because he has a "compromised immune system". Patient is not reallyAble to clarify why he thinks he has a compromised immune system. Patient states he is otherwise healthy. He was worked up from a cardiac standpoint for 5 years ago, but was ultimately diagnosed with anxiety. At that time he had a normal stress test. No other complaints at this time. Patient states that he has had a couple of episodes of the pain while we have been talking, but these have been short-lived. Review of Systems Ten Systems: 10 systems reviewed and negative Constitutional: reports: Reviewed and negative Eyes: reports: Reviewed and negative Ears: reports: Reviewed and negative Nose: reports: Reviewed and negative Throat: reports: Reviewed and negative Cardiac: reports: Chest pain / pressure Respiratory: reports: Reviewed and negative GI: reports: Reviewed and negative : reports: Reviewed and negative Skin: reports: Reviewed and negative Musculoskeletal: reports: Reviewed and negative Neurologic: reports: Reviewed and negative Psychiatric: reports: Reviewed and negative Endocrine: reports: Reviewed and negative Immunocompromised: reports: Reviewed and negative PD PAST MEDICAL HISTORY - Past Medical History Past Medical History: Yes Cardiovascular: None Respiratory: None Neuro: None Endocrine/Autoimmune: None GI: None FOUNDER AND PRESIDENT: None : None HEENT: None Psych: None Musculoskeletal: None Derm: None - Past Surgical History Past Surgical History: No - Present Medications Home Medications: Ambulatory Orders Medication Instructions Recorded Confirmed Bictegrav/Emtricit/Tenofov [place] 1 each PO DAILY 10/31/19 10/31/19 [Biktarvy 50-200-25 mg Tablet] - Allergies Allergies/Adverse Reactions: Allergies Allergy/AdvReac Type Severity Reaction Status Date / Time No Known Drug Allergies Allergy Verified 10/31/19 18:55 - Social History Does the pt smoke?: No Smoking Status: Never smoker Does the pt drink ETOH?: Yes Does the pt have substance abuse?: No - Immunizations Immunizations are current?: Yes - POLST Patient has POLST: No PD ED PE NORMAL - Vitals Vital signs reviewed: Yes - General General: Alert and oriented X 3, No acute distress - HEENT HEENT: Atraumatic, PERRL, EOMI, Moist mucous membranes - Neck Neck: Supple, no meningeal sign - Cardiac Cardiac: RRR, No murmur, Strong equal pulses - Respiratory Respiratory: No respiratory distress, Clear bilaterally - Abdomen Abdomen: Normal bowel sounds, Soft, Non tender, Non distended - Derm Derm: Warm and dry - Extremities Extremities: No deformity - Neuro Neuro: Alert and oriented X 3 - Psych Psych: Normal mood, Normal affect Results - Vitals Vitals: Oxygen O2 Source Room air - EKG (time done) 1855 Rate: Rate (enter#) (99) Rhythm: NSR [place]: Normal Intervals: Normal AL QRS: Normal Ischemia: Normal ST segments, Non specific changes Compare to prior EKG: Old EKG unavailable - Labs Labs: Laboratory Tests 10/31/19 10/31/19 10/31/19 19:30 19:30 19:30 WBC 6.8 RBC 5.59 Hgb 16.8 Hct 48.8 MCV 87.3 MCH 30.1 MCHC 34.4 RDW 13.0 Plt Count 303 MPV 9.6 Neut # (Auto) 3.0 Lymph # (Auto) 2.6 [place] # (Auto) 1.0 Eos # (Auto) 0.1 Baso # (Auto) 0.0 Absolute Nucleated RBC 0.00 Nucleated RBC % 0.0 Sodium 133 L Potassium 3.6 Chloride 102 Carbon Dioxide 21 Anion Gap 10.0 BUN 10 Creatinine 0.8 Estimated GFR (MDRD) 136 Glucose 89 Calcium 9.2 Total Bilirubin 0.9 AST 26 ALT 53 Alkaline Phosphatase 43 Troponin I High Sens < 2.3 L Total Protein 7.9 Albumin 4.5 Globulin 3.4 Albumin/Globulin Ratio 1.3 Lipase 37 PD MEDICAL DECISION MAKING - ED course Complexity details: reviewed results, re-evaluated patient, considered differential, d/w patient ED course: Patient was worked up with chest x-ray, EKG, and labs, all of which were unremarkable. I d/w pt that he is overall low risk, but that if he continues to have episodes of pain, he should follow up with his doctor to discuss whether further work-up would be appropriate. Departure - Departure Disposition: 01 Home, Self Care Clinical Impression: Chest pain Qualifiers: Chest pain type: unspecified Qualified Code(s): R07.9 - Chest pain, unspecified Condition: Good Instructions: ED Chest Pain [facility] Comments: All of your tests look good. There is no evidence of an emergent cause of your chest pain tonight. Most likely, the pain is coming from the structures of your chest wall, as we have discussed. However, if you continue to have the pains for more than the next several days, you should schedule an appointment to follow-up with your primary care physician to discuss having a stress test done. If you develop severe chest pain accompanied by shortness of breath and or nausea, lightheadedness, or facial sweating, please return to the emergency department. Discharge Date/Time: 10/31/19 21:08
[2019-10-31 19:34] LABS: BASOPHILS % (AUTO) 0.6 %; EOSINOPHILS # (AUTO) 0.1 10^3/uL (0.0-0.7); EOSINOPHILS % (AUTO) 1.5 %; HGB - HEMOGLOBIN 16.8 g/dL (14.0-18.0); LYMPHOCYTES # (AUTO) 2.6 10^3/uL (1.5-3.5); LYMPHOCYTES % (AUTO) 38.8 %; MEAN CORPUSCULAR HEMOGLOBIN 30.1 pg (27.0-31.0); MEAN CORPUSCULAR HGB CONC 34.4 g/dL (32.0-36.0); MEAN CORPUSCULAR VOLUME 87.3 fL (80.0-94.0); MEAN PLATELET VOLUME 9.6 fL (7.4-11.4); MONOCYTES % (AUTO) 14.1 %; NEUTROPHILS % (AUTO) 44.7 %; PLT - PLATELET COUNT 303 10^3/uL (130-450); RED BLOOD COUNT 5.59 10^6/uL (4.70-6.10); WHITE BLOOD COUNT 6.8 x10^3/uL (4.8-10.8)
[2019-10-31] MEDS ORDERED: IBUPROFEN 800 MG TABLET PO STA (19:37)
[2019-10-31 19:47] LABS: ALBUMIN 4.5 g/dL (3.2-5.5); ALBUMIN/GLOBULIN RATIO 1.3 (1.0-2.2); BILIRUBIN,TOTAL 0.9 mg/dL (0.2-1.0); CALCIUM 9.2 mg/dL (8.5-10.3); CREATININE 0.8 mg/dL (0.6-1.2); TOTAL PROTEIN 7.9 g/dL (6.7-8.2)
--- NOTE | 2019-10-31 20:23 | XRAY Report ---
Reason: cough Procedure Date: 10/31/2019 Accession Number: [id number] / [id number] Procedure: XR - Chest 2 View X-Ray CPT Code: 30040 Final Report FULL RESULT: EXAM: CHEST RADIOGRAPHY EXAM DATE: 10/31/2019 07:33 PM. CLINICAL HISTORY: Cough. COMPARISON: CHEST 2 VIEW 10/19/2017 8:36 PM. TECHNIQUE: 2 views. FINDINGS: Lungs/Pleura: No infiltrates. No pleural effusions or pneumothorax. Mediastinum: Heart and mediastinal contours are unremarkable. Osseous structures: No significant focal osseous lesions. IMPRESSION: No acute cardiopulmonary findings radiographically. [facility]
[2019-10-31 21:08] VITALS: BP 139/82
== END 2019-10-31 21:08 | disposition home or self-care (01) ==
LOC: ED 18:45
DX: R07.9 Chest pain, unspecified (principal)
CPT/HCPCS: 36415; 71046; 80053; 83690; 84484; 85025; 93005; 99284; A9270

== ENCOUNTER 2020-05-06 00:45 | Emergency (ER) | payer OTHER ==
[2020-05-06] MEDS ORDERED: diltiaZEM INJ 5 MG/ML VIAL IVP STA (00:59)
--- NOTE | 2020-05-06 00:59 | ED Physician Documentation ---
History of Present Illness - Stated complaint Stated Complaint: FAST HEART - Chief complaint Chief Complaint: Cardiac - History obtained from History obtained from: Patient - History of Present Illness Timing: Enter time (20:00), Today Pain level max: 0 Pain level now: 0 Improved by: rest Worsened by: exertion - Additonal information Additional information: c/o sudden onset rapid and irregular palpitations at 8 PM while at home at rest watching TV. Denies chest pain/pressure/tightness. Reports mild dyspnea with the palpitations. Denies h/o similar symptoms Review of Systems Cardiac: reports: Palpitations. denies: Chest pain / pressure, Pedal edema, Calf pain Respiratory: reports: Dyspnea. 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 : None HEENT: None Psych: None Musculoskeletal: None Derm: None - Past Surgical History Past Surgical History: No - Present Medications Home Medications: Ambulatory Orders Medication Instructions Recorded Confirmed Bictegrav/Emtricit/Tenofov [place] 1 each PO DAILY 10/31/19 10/31/19 [Biktarvy 50-200-25 mg Tablet] - Allergies Allergies/Adverse Reactions: Allergies Allergy/AdvReac Type Severity Reaction Status Date / Time No Known Drug Allergies Allergy Verified 05/06/20 00:55 - Social History Does the pt smoke?: No Smoking Status: Never smoker Does the pt drink ETOH?: Yes Does the pt have substance abuse?: No - Immunizations Immunizations are current?: Yes - POLST Patient has POLST: No PD ED PE NORMAL - Vitals Vital signs reviewed: Yes - General General: Alert and oriented X 3, No acute distress, Well developed/nourished - HEENT HEENT: Moist mucous membranes - Neck Neck: Supple, no meningeal sign - Cardiac Cardiac: No murmur - Respiratory Respiratory: No respiratory distress, Clear bilaterally - Abdomen Abdomen: Soft, Non tender - Derm Derm: Normal color, Warm and dry - Extremities Extremities: No edema PD ED PE EXPANDED - Cardiac Cardiac: Tachy, Irregularly irregular Results - Vitals Vitals: Vital Signs - 24 hr 05/06/20 05/06/20 05/06/20 00:51 01:00 01:05 Temperature 36.7 C Heart Rate 150 H 140 H 100 Respiratory 18 12 12 Rate Blood Pressure 120/75 116/73 108/61 O2 Saturation 97 97 96 05/06/20 05/06/20 05/06/20 01:30 01:51 02:00 Temperature 36.5 C Heart Rate 100 107 H 137 H Respiratory 14 Rate Blood Pressure 127/80 111/87 H 97/76 O2 Saturation 98 05/06/20 05/06/20 05/06/20 02:30 03:00 03:07 Temperature Heart Rate 120 H 131 H 148 H Respiratory Rate Blood Pressure 126/85 H 126/76 131/86 H O2 Saturation 05/06/20 05/06/20 05/06/20 03:20 03:34 04:01 Temperature 36.2 C L Heart Rate 128 H 93 84 Respiratory 12 26 H Rate Blood Pressure 121/99 H 100/81 H 109/76 O2 Saturation 100 96 05/06/20 04:03 Temperature 36.3 C L Heart Rate 85 Respiratory 24 Rate Blood Pressure 109/76 O2 Saturation 98 Oxygen O2 Source Room air - EKG (time done) #1 Rate: Rate (enter#) (136) Rhythm: Atrial fibrillation [place]: Normal Ischemia: Non specific changes (III, aVF) #2 Rate: Rate (enter#) (92) Rhythm: NSR [place]: Normal Intervals: Normal [place] QRS: Normal Ischemia: Non specific changes (III, aVF (small Q waves, inverted T waves)) - Labs Labs: Laboratory Tests 05/06/20 05/06/20 05/06/20 01:03 01:03 01:03 WBC 7.6 RBC 5.59 Hgb 17.7 Hct 48.6 MCV 86.9 MCH 31.7 H MCHC 36.4 H RDW 13.0 Plt Count 343 MPV 10.4 Neut # (Auto) 3.1 Lymph # (Auto) 3.3 [place] # (Auto) 1.0 Eos # (Auto) 0.2 Baso # (Auto) 0.0 Absolute Nucleated RBC 0.00 Nucleated RBC % 0.0 Sodium 139 Potassium 3.7 Chloride 106 Carbon Dioxide 24 Anion Gap 9.0 BUN 12 Creatinine 1.0 Estimated GFR (MDRD) 104 Glucose 112 H Calcium 9.5 Total Bilirubin 0.4 AST 19 ALT 32 Alkaline Phosphatase 49 Troponin I High Sens 2.6 Total Protein 7.4 Albumin 4.3 Globulin 3.1 Albumin/Globulin Ratio 1.4 Lipase 46 TSH 05/06/20 01:03 WBC RBC Hgb Hct MCV MCH MCHC RDW Plt Count MPV Neut # (Auto) Lymph # (Auto) [place] # (Auto) Eos # (Auto) Baso # (Auto) Absolute Nucleated RBC Nucleated RBC % Sodium Potassium Chloride Carbon Dioxide Anion Gap BUN Creatinine Estimated GFR (MDRD) Glucose Calcium Total Bilirubin AST ALT Alkaline Phosphatase Troponin I High Sens Total Protein Albumin Globulin Albumin/Globulin Ratio Lipase TSH 1.30 - Rads (name of study) chest xray Radiology: Prelim report reviewed, See rad report PD MEDICAL DECISION MAKING - ED course Complexity details: reviewed results, re-evaluated patient, considered differential, d/w patient ED course: New onset ILANA. Given 20mg IV cardizem; this afforded transient rate control but patient remained in atrial fibrillation, with rate gradually returning to 120s- 130s. Options d/w patient; specifically, electrocardioversion, chemical cardioversion, or rate control and anticoagulation. Risks and benefits of these options were reviewed; patient opts for chemical cardioversion. Procainamide infused and patient converted to NSR prior to completion of the infusion (approximately 45 minutes into the 60 minute infusion). He had resolution of his palpitations when he converted to NSR. Departure - Departure Disposition: 01 Home, Self Care Clinical Impression: Atrial fibrillation with RVR Condition: Good Instructions: ED Afib Comments: Follow up with your primary care provider; further tests might be needed even if you are feeling well Discharge Date/Time: 05/06/20 04:20
[2020-05-06 01:12] LABS: BASOPHILS % (AUTO) 0.5 %; EOSINOPHILS # (AUTO) 0.2 10^3/uL (0.0-0.7); HGB - HEMOGLOBIN 17.7 g/dL (14.0-18.0); LYMPHOCYTES # (AUTO) 3.3 10^3/uL (1.5-3.5); LYMPHOCYTES % (AUTO) 43.2 %; MEAN CORPUSCULAR HEMOGLOBIN 31.7 pg (27.0-31.0); MEAN CORPUSCULAR HGB CONC 36.4 g/dL (32.0-36.0); MEAN CORPUSCULAR VOLUME 86.9 fL (80.0-94.0); MEAN PLATELET VOLUME 10.4 fL (7.4-11.4); MONOCYTES % (AUTO) 13.4 %; NEUTROPHILS # (AUTO) 3.1 10^3/uL (1.5-6.6); NEUTROPHILS % (AUTO) 40.6 %; PLT - PLATELET COUNT 343 10^3/uL (130-450); RED BLOOD COUNT 5.59 10^6/uL (4.70-6.10); WHITE BLOOD COUNT 7.6 x10^3/uL (4.8-10.8)
[2020-05-06 01:22] LABS: ALBUMIN 4.3 g/dL (3.2-5.5); ALBUMIN/GLOBULIN RATIO 1.4 (1.0-2.2); BILIRUBIN,TOTAL 0.4 mg/dL (0.2-1.0); CALCIUM 9.5 mg/dL (8.5-10.3); TOTAL PROTEIN 7.4 g/dL (6.7-8.2)
[2020-05-06] MEDS ORDERED: PROCAINAMIDE 1,000 MG in SODIUM CHLORIDE 0.9% 240 ML IV STA (02:09)
[2020-05-06] MEDS ORDERED: SODIUM CHLORIDE 0.9% 1,000 ML IV STA (02:09)
[2020-05-06] MEDS ORDERED: PROCAINAMIDE 1,000 MG/10 ML SYRINGE ONE (02:21)
[2020-05-06 04:02] VITALS: BP 109/76
--- NOTE | 2020-05-06 07:13 | XRAY Report ---
PROCEDURE: Chest 1 View X-Ray INDICATIONS: Chest pain TECHNIQUE: One view of the chest was acquired. COMPARISON: 10/31/2019, 10/19/2017 FINDINGS: Surgical changes and devices: None. Lungs and pleura: No pleural effusions or pneumothorax. Lungs are clear. Mediastinum: Mediastinal contours appear normal. Heart size is normal. Bones and chest wall: No suspicious bony lesions. Overlying soft tissues appear unremarkable. IMPRESSION: Stable examination of the chest without acute cardiopulmonary abnormalities. No significant discrepancy with initial interpretation by overnight radiologist. Reviewed by: Hermilo Palomares MD on 05/06/2020 7:11 AM PDT Approved by: Hermilo Palomares MD on 05/06/2020 7:11 AM PDT Station ID: [id number]
== END 2020-05-06 04:20 | disposition home or self-care (01) ==
LOC: ED 00:45
DX: I48.91 Unspecified atrial fibrillation (principal)
CPT/HCPCS: 36415; 71045; 83690; 84484; 93005; 96365; 96375; 99283; 99285; J2690; 80053; 84443; 85025

== ENCOUNTER 2020-05-24 13:26 | Outpatient (CLI) | payer OTHER ==
[2020-05-24] MEDS ORDERED: GADOBUTROL 15 MMOL/15 ML VIAL ONE (15:03)
--- NOTE | 2020-05-24 15:43 | MRI Report ---
PROCEDURE: Cervical Spine W/WO INDICATIONS: AFIB,PALPITATIONS,PARATHESIA,WEAKNESS, ASYMPT HIV CONTRAST: IV CONTRAST: Gadavist ml: 13 TECHNIQUE: Noncontrast sagittal T1 spin echo and T2 fast spin echo, sagittal STIR, sagittal PD fast spin echo, f oraminal oblique sagittal T2 fast spin echo, axial gradient echo or T2 fast spin echo through the cer vical spine. After the administration of contrast, sagittal and axial T1 spin echo with fat saturati on through the cervical spine. COMPARISON: None. FINDINGS: Image quality: Excellent. Alignment and curvature: Normal alignment of the cervical spine. Normal vertebral body height. Marrow: Normal bone marrow signal intensity without edema or abnormal enhancement. Spinal cord: No cord signal abnormality or syrinx. No abnormal intradural enhancement. Regional soft tissues: Prevertebral paraspinous soft tissues are normal with regard to signal and enh ancement. C2-C3: No spinal canal or foraminal stenosis. C3-C4: No spinal canal and neural foraminal stenosis. C4-C5: No spinal canal or neural foraminal stenosis. C5-C6: No spinal canal or neural foraminal stenosis. C6-C7: No spinal canal or neural foraminal stenosis. C7-T1: No spinal canal or neural foraminal stenosis. IMPRESSION: Normal MRI of the cervical spine. Reviewed by: Ricco Rivers MD on 05/24/2020 3:42 PM PDT Approved by: Ricoc Rivers MD on 05/24/2020 3:42 PM PDT Station ID: [id number]
[2020-05-24] MEDS ORDERED: GADOBUTROL 15 MMOL/15 ML VIAL IVP ONE (16:38)
== END 2020-05-24 13:27 | disposition home or self-care (01) ==
LOC: DI 13:26
PROVIDERS: ATTEND Family Medicine
DX: R20.2 Paresthesia of skin (principal); R53.1 Weakness; Z21 Asymptomatic human immunodeficiency virus [HIV] infection status; I48.0 Paroxysmal atrial fibrillation; R00.2 Palpitations
CPT/HCPCS: 72156; 93306; A9585

== ENCOUNTER 2020-05-27 18:48 | Emergency (ER) | payer OTHER ==
--- NOTE | 2020-05-27 19:11 | ED Physician Documentation ---
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 Has a history of HIV diagnosed in 2013 with reportedly good indices on Biktarvy. He also has a history of diverticulitis. More recently had a first episode of atrial fibrillation about 2 weeks ago which was converted with procainamide. He is now on metoprolol and Plavix. No other anticoagulation. For the last 24 hours he has had mild constant numbness in the left forearm and hand sparing the face and leg. No headache. 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 : None HEENT: None Psych: None Musculoskeletal: None Derm: None - Past Surgical History Past Surgical History: No - Present Medications Home Medications: Ambulatory Orders Medication Instructions Recorded Confirmed Bictegrav/Emtricit/Tenofov [place] 1 each PO DAILY 10/31/19 10/31/19 [Biktarvy 50-200-25 mg Tablet] Clopidogrel [Plavix] 05/27/20 Metoprolol Tartrate 50 mg PO 05/27/20 - Allergies Allergies/Adverse Reactions: Allergies Allergy/AdvReac Type Severity Reaction Status Date / Time No Known Drug Allergies Allergy Verified 05/27/20 18:55 - Social History Does the pt smoke?: No Smoking Status: Never smoker Does the pt drink ETOH?: Yes Does the pt have substance abuse?: No - Immunizations Immunizations are current?: Yes - POLST Patient has POLST: No PD ED PE NORMAL - Vitals Vital signs reviewed: Yes - General General: Alert and oriented X 3, No acute distress - HEENT HEENT: PERRL, EOMI - Neck Neck: Supple, no meningeal sign, No bony TTP - Cardiac Cardiac: RRR, No murmur - Respiratory Respiratory: No respiratory distress, Clear bilaterally - Abdomen Abdomen: Normal bowel sounds, Soft, Non tender - Back Back: No CVA TTP, No spinal TTP - Derm Derm: Normal color, Warm and dry - Extremities Extremities: Other (NIHSS is 0, noting he has objectively symmetric sensation throughout the upper extremities.) - Neuro Neuro: Alert and oriented X 3, coater 2-12 intact, Normal speech Results - Vitals Vitals: Vital Signs - 24 hr 05/27/20 18:52 Temperature 36.8 C Heart Rate 103 H Respiratory 18 Rate Blood Pressure 140/80 H O2 Saturation 98 Oxygen O2 Source Room air - EKG (time done) 1851 Rate: Rate (enter#) (98) Rhythm: NSR [place]: Normal Intervals: Normal [place] QRS: Normal Ischemia: Non specific changes Computer interpretation: Agree with computer - Labs Labs: Laboratory Tests 05/27/20 05/27/20 19:01 19:01 WBC 4.5 L RBC 5.60 Hgb 16.7 Hct 48.3 MCV 86.3 MCH 29.8 MCHC 34.6 RDW 12.7 Plt Count 293 MPV 9.9 Neut # (Auto) 1.9 Lymph # (Auto) 1.9 [place] # (Auto) 0.5 Eos # (Auto) 0.1 Baso # (Auto) 0.0 Absolute Nucleated RBC 0.00 Nucleated RBC % 0.0 Sodium 139 Potassium 3.8 Chloride 105 Carbon Dioxide 23 Anion Gap 11.0 BUN 13 Creatinine 1.0 Estimated GFR (MDRD) 104 Glucose 149 H Calcium 9.4 PD MEDICAL DECISION MAKING - ED course ED course: 39-year-old gentleman with history of A. fib but not in it now, on Plavix presents with left hand paresthesia of several days duration. Clearly not a TPA candidate. NIH stroke scale is 0. CT angiography of the head and neck was negative. Advised to follow-up with his doctor on Friday for consideration of MRI. Departure - Departure Disposition: Home, Self Care Clinical Impression: Paresthesia of arm Condition: Good Record reviewed to determine appropriate education?: Yes Comments: Talk with your doctor specific about Plavix. Not sure what the reasoning is behind that choice. There may be other issues that they prescribed it for but if they are trying to anticoagulate you for atrial fibrillation, different anticoagulant would generally be indicated. But since your [id number] score is 0, you may or may not require anticoagulation other than aspirin. CT angiography of the head and neck today was normal. This does not rule out a small stroke, and you should talk with your doctor on Friday about an MRI.
[2020-05-27 19:13] LABS: BASOPHILS % (AUTO) 0.7 %; EOSINOPHILS # (AUTO) 0.1 10^3/uL (0.0-0.7); EOSINOPHILS % (AUTO) 1.6 %; HGB - HEMOGLOBIN 16.7 g/dL (14.0-18.0); LYMPHOCYTES # (AUTO) 1.9 10^3/uL (1.5-3.5); LYMPHOCYTES % (AUTO) 42.5 %; MEAN CORPUSCULAR HEMOGLOBIN 29.8 pg (27.0-31.0); MEAN CORPUSCULAR HGB CONC 34.6 g/dL (32.0-36.0); MEAN CORPUSCULAR VOLUME 86.3 fL (80.0-94.0); MEAN PLATELET VOLUME 9.9 fL (7.4-11.4); MONOCYTES # (AUTO) 0.5 10^3/uL (0.0-1.0); MONOCYTES % (AUTO) 11.8 %; NEUTROPHILS # (AUTO) 1.9 10^3/uL (1.5-6.6); NEUTROPHILS % (AUTO) 43.2 %; PLT - PLATELET COUNT 293 10^3/uL (130-450); RED CELL DISTRIBUTION WIDTH 12.7 % (12.0-15.0); WHITE BLOOD COUNT 4.5 x10^3/uL (4.8-10.8)
[2020-05-27 19:18] LABS: CALCIUM 9.4 mg/dL (8.5-10.3)
[2020-05-27] MEDS ORDERED: IOVERSOL 320 100 ML VIAL IVP ONE ×2 (19:25→20:30)
--- NOTE | 2020-05-27 20:46 | CT Report ---
PROCEDURE: ANGIO HEAD W/WO INDICATIONS: L sided numnbess CONTRAST: IV CONTRAST: Optiray 320 ml: 100 PO CONTRAST: *NO PO CONTRAST TECHNIQUE: Precontrast 4.5 mm thick angled axial sections acquired from the foramen magnum to the vertex. Afte r the administration of intravenous contrast, 1 mm thick sections acquired through the [place] is. Postcontrast 4.5 mm thick sections then re-acquired from the foramen magnum to the vertex. 3-di mensional ctvqbvi-jkxutfqoy-gchakeijjp (MIP) and/or volume rendering reformats were acquired of the c entral intracranial vasculature. For radiation dose reduction, the following was used: automated ex posure control, adjustment of mA and/or kV according to patient size. COMPARISON: None FINDINGS: Image quality: Excellent. Anterior circulation: Intracranial internal carotid arteries are normal in size and flow. The flow within the paired anterior cerebral arteries is normal and symmetric. The flow within the middle cer ebral arteries is normal and symmetric. The anterior communicating artery is seen. No aneurysms are seen. Posterior circulation: Visualized portions of the vertebral arteries demonstrate normal caliber, and join to form a normal appearing basilar artery. Flow within the posterior cerebral arteries is norm al and symmetric. No aneurysms are seen. Dural sinuses demonstrate normal postcontrast enhancement. CSF spaces: Ventricles are normal in size and shape. Basal cisterns are patent. No extra-axial flu id collections. Brain: No midline shift. No intracranial bleeds or masses. Martinez-white matter interface appears int act. Skull and face: Calvarium and facial bones appear intact, without suspicious lesions. Sinuses: Visualized sinuses and mastoids are clear. IMPRESSION: 1. No acute intracranial disease process. 2. No large vessel occlusion, vascular stenosis, vascular dissection or aneurysm. Reviewed by: Earlene Stanford MD, PhD on 05/27/2020 8:45 PM PDT Approved by: Earlene Stanford MD, PhD on 05/27/2020 8:45 PM PDT Station ID: [id number]
--- NOTE | 2020-05-27 20:50 | CT Report ---
PROCEDURE: ANGIO NECK W INDICATIONS: L sided numbness CONTRAST: IV CONTRAST: Optiray 320 ml: 100 PO CONTRAST: *NO PO CONTRAST TECHNIQUE: After the administration of intravenous contrast, 1.5 mm axial sections acquired from the aortic arch to the [place] of [place]. Coronal 3-D maximum intensity projection (MIP) and/or volume rendering ref ormats were then performed. For radiation dose reduction, the following was used: automated exposur e control, adjustment of mA and/or kV according to patient size. COMPARISON: None. FINDINGS: Image quality: Excellent. Carotid system: The great vessels demonstrate a conventional anatomy as they arise from the aortic a [facility]. The origins of the common carotid arteries appear patent. The common carotid arteries demonstr ate normal calibers and courses. The bifurcation regions appear normal bilaterally. The internal ca rotid arteries demonstrate normal caliber and course. Posterior circulation: The origins of the vertebral arteries appear patent. The more superior porti ons of the vertebral arteries demonstrate normal course and caliber. They join to form a normal appe aring basilar artery. Soft tissues: Visualized neck soft tissues demonstrate no suspicious abnormalities. The thyroid gla nd is normal in size. Bones: No suspicious bony lesions. Visualized cervical spine appears normally aligned. IMPRESSION: 1. Internal carotid arteries are fully patent. 2. Vertebral arteries are fully patent. The estimate of stenosis included in the report of the imaging study was calculated using the NASCET method Reviewed by: Earlene Stanford MD, PhD on 05/27/2020 8:48 PM PDT Approved by: Earleen Stanford MD, PhD on 05/27/2020 8:48 PM PDT Station ID: [id number]
[2020-05-27 21:03] VITALS: BP 130/91
== END 2020-05-27 21:03 | disposition home or self-care (01) ==
LOC: ED 18:48
DX: R20.2 Paresthesia of skin (principal); I48.91 Unspecified atrial fibrillation; Z79.01 Long term (current) use of anticoagulants; B20 Human immunodeficiency virus [HIV] disease
CPT/HCPCS: 36415; 70496; 70498; 80048; 85025; 93005; 99282; 99284; Q9967

== ENCOUNTER 2020-05-30 02:04 | Emergency (ER) | payer OTHER ==
[2020-05-30 02:24] LABS: BASOPHILS % (AUTO) 0.5 %; EOSINOPHILS # (AUTO) 0.1 10^3/uL (0.0-0.7); EOSINOPHILS % (AUTO) 1.6 %; HGB - HEMOGLOBIN 16.5 g/dL (14.0-18.0); LYMPHOCYTES # (AUTO) 2.4 10^3/uL (1.5-3.5); LYMPHOCYTES % (AUTO) 37.6 %; MEAN CORPUSCULAR HEMOGLOBIN 29.5 pg (27.0-31.0); MEAN CORPUSCULAR HGB CONC 33.3 g/dL (32.0-36.0); MEAN CORPUSCULAR VOLUME 88.6 fL (80.0-94.0); MONOCYTES # (AUTO) 0.8 10^3/uL (0.0-1.0); PLT - PLATELET COUNT 306 10^3/uL (130-450); RED BLOOD COUNT 5.59 10^6/uL (4.70-6.10); RED CELL DISTRIBUTION WIDTH 13.2 % (12.0-15.0); WHITE BLOOD COUNT 6.3 x10^3/uL (4.8-10.8)
[2020-05-30 02:35] LABS: ALBUMIN 4.7 g/dL (3.2-5.5); ALBUMIN/GLOBULIN RATIO 1.5 (1.0-2.2); BILIRUBIN,TOTAL 0.8 mg/dL (0.2-1.0); CALCIUM 9.5 mg/dL (8.5-10.3); CREATININE 0.9 mg/dL (0.6-1.2); TOTAL PROTEIN 7.8 g/dL (6.7-8.2)
--- NOTE | 2020-05-30 04:26 | ED Physician Documentation ---
PD HPI CHEST PAIN - Stated complaint Stated Complaint: CP - Chief complaint Chief Complaint: Cardiac - History obtained from History obtained from: Patient - Additional information Additional information: 5-year-old man with past medical history of A. fib diagnosed May 06, HIV with undetectable viral load, presents with chest pain sudden in onset just prior to arrival that is throbbing in quality, intermittent lasting about 15 seconds at a time without associated features. no exacerbating or relieving factors. pain occurs at rest and is not worse with movement or exercise. Denies fever chills cough shortness of breath nausea diaphoresis back pain or pleurisy. PERC negative. 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 : None HEENT: None Psych: None Musculoskeletal: None Derm: None - Past Surgical History Past Surgical History: No - Present Medications Home Medications: Ambulatory Orders Medication Instructions Recorded Confirmed Bictegrav/Emtricit/Tenofov [place] 1 each PO DAILY 10/31/19 10/31/19 [Biktarvy 50-200-25 mg Tablet] Clopidogrel [Plavix] 05/27/20 Metoprolol Tartrate 50 mg PO 05/27/20 - Allergies Allergies/Adverse Reactions: Allergies Allergy/AdvReac Type Severity Reaction Status Date / Time No Known Drug Allergies Allergy Verified 05/27/20 18:55 - Social History Does the pt smoke?: No Smoking Status: Never smoker Does the pt drink ETOH?: Yes Does the pt have substance abuse?: No - Immunizations Immunizations are current?: Yes - POLST Patient has POLST: No PD ED PE NORMAL - Vitals Vital signs reviewed: Yes - General General: Alert and oriented X 3 - HEENT HEENT: Atraumatic - Neck Neck: Supple, no meningeal sign - Cardiac Cardiac: RRR - Respiratory Respiratory: No respiratory distress, Clear bilaterally - Abdomen Abdomen: Non tender, Non distended - Male Male : Deferred - Rectal Rectal: Deferred - Back Back: No CVA TTP, No spinal TTP - Derm Derm: Normal color - Extremities Extremities: No deformity, No edema - Neuro Neuro: Alert and oriented X 3 - Psych Psych: Normal mood, Normal affect Results - Vitals Vitals: Vital Signs - 24 hr 05/30/20 05/30/20 02:15 02:20 Temperature 37.8 C H 37.5 C Heart Rate 77 86 Respiratory 18 17 Rate Blood Pressure 132/79 H 126/81 H O2 Saturation 97 94 Oxygen O2 Source Room air - Labs Labs: Laboratory Tests 05/30/20 05/30/20 05/30/20 02:15 02:15 02:15 WBC 6.3 RBC 5.59 Hgb 16.5 Hct 49.5 MCV 88.6 MCH 29.5 MCHC 33.3 RDW 13.2 Plt Count 306 MPV 10.0 Neut # (Auto) 3.0 Lymph # (Auto) 2.4 [place] # (Auto) 0.8 Eos # (Auto) 0.1 Baso # (Auto) 0.0 Absolute Nucleated RBC 0.00 Nucleated RBC % 0.0 Sodium 140 Potassium 3.7 Chloride 106 Carbon Dioxide 24 Anion Gap 10.0 BUN 13 Creatinine 0.9 Estimated GFR (MDRD) 118 Glucose 97 Calcium 9.5 Total Bilirubin 0.8 AST 21 ALT 35 Alkaline Phosphatase 46 Troponin I High Sens < 2.3 L Total Protein 7.8 Albumin 4.7 Globulin 3.1 Albumin/Globulin Ratio 1.5 Lipase 40 PD MEDICAL DECISION MAKING - ED course ED course: 35-year-old man with past medical history of newly diagnosed atrial fibrillation presents with atypical chest pain this evening lasting about 15 seconds at a time and self resolving. Patient in normal sinus rhythm on arrival to the ED D, with resolution of chest pain. Work-up negative in the emergency department with normal troponin, chest x-ray, other lab work. Discussed with patient's cardiology office Dr. Young pipe connector for Dr. Escamilla in [place]. Plan to follow-up in a.m. to schedule outpatient stress test. Departure - Departure Disposition: 01 Home, Self Care Clinical Impression: Atypical chest pain, Anxiety, Chest pain Condition: Good Record reviewed to determine appropriate education?: Yes Instructions: ED Chest Pain Atypical Unkn Cause Comments: Seen in the emergency department for chest pain and found to have a EKG with All rhythm. You were not in A. fib in the ED. Your lab work and chest x-ray looked okay, And your doctor in the emergency room discussed it with Dr. 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 Plan to call to make an appointment with Dr. Escamilla in the morning for stress test. return To the ED for any worsening of symptoms.
[2020-05-30 05:01] VITALS: BP 122/77
--- NOTE | 2020-05-30 09:53 | XRAY Report ---
PROCEDURE: Chest 1 View X-Ray INDICATIONS: Chest pain TECHNIQUE: One view of the chest was acquired. COMPARISON: 05/06/2020 and 10/31/2019 FINDINGS: Surgical changes and devices: None. Lungs and pleura: No pleural effusions or pneumothorax. Lungs are clear. Mediastinum: Mediastinal contours appear normal. Heart size is normal. Bones and chest wall: No suspicious bony lesions. Overlying soft tissues appear unremarkable. IMPRESSION: No acute cardiopulmonary disease process. Reviewed by: Earlene Stanford MD, PhD on 05/30/2020 9:52 AM [facility] Approved by: Earlene Stanford MD, PhD on 05/30/2020 9:52 AM [facility] Station ID: [id number]
== END 2020-05-30 04:50 | disposition home or self-care (01) ==
LOC: ED 02:04
DX: R07.89 Other chest pain (principal); F41.9 Anxiety disorder, unspecified; I48.91 Unspecified atrial fibrillation; Z79.02 Long term (current) use of antithrombotics/antiplatelets; Z21 Asymptomatic human immunodeficiency virus [HIV] infection status
CPT/HCPCS: 36415; 71045; 80053; 83690; 84484; 85025; 93005; 99284